=== PATIENT | female | born 1985 | race African-American/Black ===

== ENCOUNTER 2025-03-25 09:39 | Emergency (ER) | payer MEDICAID ==
[2025-03-25] MEDS ORDERED: Sodium Chloride 0.9% 10 ML Syringe FLUSH PRN (10:02)
[2025-03-25] MEDS: Labetalol 100 MG/20 ML MDV IVPUSH ONE (10:26)
[2025-03-25 10:27] LABS: MEAN PLATELET VOLUME 9.3 fl (9.4-12.3); NRBC ABSOLUTE 0.00 (0.00-0.02); NRBC PERCENT 0.0 % (0.0-0.2); PLATELET COUNT,PLT 405 K/mm3 (150-400); RED BLOOD CELL COUNT 4.94 M/mm3 (4.10-5.30); WHITE BLOOD CELL COUNT,WBC 5.53 K/mm3 (3.9-11.3)
[2025-03-25 10:44] LABS: INR 1.02
[2025-03-25 10:48] LABS: A/G RATIO 0.7 (1-2); ALANINE AMINOTRANSFERASE,ALT 24.0 U/L (14-59); ASPARTATE AMNIOTRANSFERASE,AST 20.0 U/L (15-37); BILIRUBIN TOTAL 0.4 mg/dL (0.2-1.0); BLOOD UREA NITROGEN,BUN 11.0 mg/dL (7-18); CARBON DIOXIDE,CO2 28.0 mEq/L (21-32); CHLORIDE,CL 107.0 mEq/L (98-107); CREATININE 0.8 mg/dL (0.55-1.02); EST CRCL DRUG DOSING (CG) 88.38 mL/min; ESTIMATED GFR 96.0 mL/min (>60); GLUCOSE RANDOM 88.0 mg/dL (70-99); PROTEIN TOTAL,TP 8.2 g/dl (6.4-8.2); SODIUM,NA 142.0 mEq/L (136-145)
[2025-03-25 10:50] LABS: LACTIC ACID 0.8 mmol/L (0.4-2.0)
[2025-03-25 10:52] LABS: POTASSIUM,K 4.1 mEq/L (3.5-5.1)
[2025-03-25 11:00] LABS: BAND PERCENT MAN 0 % (0-10); BASOPHILS PERCENT MAN 0 (0.1-1.2); EOSINOPHILS PERCENT MAN 4 % (0.7-5.8); LYMPHOCYTES % ATYPICAL MANUAL 0 %; LYMPHOCYTES PERCENT MAN 43 % (20-40); MONOCYTES PERCENT MAN 5 % (2-10)
[2025-03-25 11:01] LABS: PLATELET COUNT ESTIMATE ADEQUATE
== END 2025-03-25 11:57 | disposition home or self-care (01) ==
LOC: JD.ED 09:39
DX: L08.9 Local infection of the skin and subcutaneous tissue, unspecified (principal); I10 Essential (primary) hypertension; Z79.899 Other long term (current) drug therapy
CPT/HCPCS: 36415; 73660; 80053; 83605; 85007; 85027; 85610; 86140; 96374; 96375; 99283; J0696; J1920